=== PATIENT | female | born 1945 | race African-American/Black ===

== ENCOUNTER 2019-03-19 13:40 | Emergency (ER) | payer MEDICARE, OTHER ==
[~2019-03-19] VITALS: Ht 160 cm; Wt 50.0 kg
[~2019-03-19 13:40] MED LIST: ACET-2178 PO; ALBUTEROL; ASPI-518 PO; FLUT50DI; LOSA25TA3 PO; MOBI7 PO; MULT-783; OMEP20CA4 PO; POTA10CA42 PO; UBID10CA9 PO; [UNRECOGNIZED DRUG - CODE] PO
[2019-03-19 14:58] LABS: BASOPHILS % 0.8 % (0.0-2.0); EOSINOPHILS % 0.8 % (0.0-5.0); HEMATOCRIT. 38.9 % (36.0-48.0); HEMOGLOBIN. 12.9 g/dL (12.0-16.0); LYMPHOCYTES % 30.9 % (20.0-50.0); MEAN CORPUSCULAR VOLUME 87.5 fL (81.0-99.0); MEAN PLATELET VOLUME 7.6 fl (7.4-10.4); MONOCYTES % 6.4 % (2.0-8.0); NEUTROPHILS % 61.1 % (40.0-76.0); PLATELET 296 x1000/uL (130-400); RED BLOOD CELL COUNT 4.45 mill/uL (4.2-5.4); RED CELL DISTRIBUTION WIDTH 13.4 % (11.6-14.6)
[2019-03-19 15:04] LABS: CHLORIDE 106 mEq/L (98-107)
[2019-03-19 16:45] VITALS: BP 143/70
== END 2019-03-19 16:47 | disposition home or self-care (01) ==
LOC: ER 13:40
DX: R00.2 Palpitations (principal); I48.91 Unspecified atrial fibrillation; I10 Essential (primary) hypertension; J44.9 Chronic obstructive pulmonary disease, unspecified; E78.00 Pure hypercholesterolemia, unspecified; Z79.82 Long term (current) use of aspirin
CPT/HCPCS: 36415; 84484; 93005; 99284

== ENCOUNTER 2024-09-11 20:43 | Emergency (ER) | payer OTHER ==
[~2024-09-11] VITALS: Ht 165.1 cm; Wt 65.0 kg
[~2024-09-11 20:43] MED LIST changes: -ACET-2178 PO; +LOSA-412 PO; -LOSA25TA3 PO; -POTA10CA42 PO; +POTA10CA93 PO; +TOPUD PO
[2024-09-11 20:48] VITALS: TEMP 98.2; O2SAT 98
[2024-09-11 21:27] LABS: BASOPHILS % 0.7 % (0.0-2.0); EOSINOPHILS % 1.7 % (0.0-5.0); HEMATOCRIT. 38.2 % (36.0-48.0); HEMOGLOBIN. 12.2 g/dL (12.0-16.0); LYMPHOCYTES % 33.5 % (20.0-50.0); MEAN CORPUSCULAR HGB CONC 31.9 g/dL (31.0-37.0); MEAN CORPUSCULAR VOLUME 87.7 fL (81.0-99.0); MEAN PLATELET VOLUME 8.5 fl (7.4-10.4); MONOCYTES % 8.9 % (2.0-8.0); NEUTROPHILS % 55.2 % (40.0-76.0); PLATELET 214 x1000/uL (130-400); RED BLOOD CELL COUNT 4.35 mill/uL (4.2-5.4); RED CELL DISTRIBUTION WIDTH 13.5 % (11.6-14.6); WHITE BLOOD COUNT 6.9 x1000/uL (4.5-11.0)
[2024-09-11 21:32] LABS: CARBON DIOXIDE 30 mEq/L (21-32); CHLORIDE 106 mEq/L (98-107); POTASSIUM 4.5 mEq/L (3.5-5.1); SODIUM 141 mEq/L (136-145)
[2024-09-11 21:33] LABS: CALCIUM 9.8 mg/dL (8.7-10.4)
[2024-09-11 21:36] LABS: PARTIAL THROMBOPLASTIN TIME 26.4 sec (23.4-31.0); PROTHROMBIN TIME 10.9 sec (9.6-11.0)
[2024-09-11 21:37] LABS: CREATININE 1.1 mg/dL (0.6-1.0); GLUCOSE 86 mg/dL (70-105)
[2024-09-11 21:38] LABS: UREA NITROGEN BLOOD 19 mg/dL (9-23)
[2024-09-11 21:39] LABS: TROPONIN I HIGH SENSITIVITY 4 ng/L (3.0-34)
[2024-09-11 21:40] LABS: PHOSPHORUS 2.7 mg/dL (2.5-4.9)
[2024-09-11] MEDS: SODIUM CHLORIDE 0.9% 500 ML IV ONE (22:43)
[2024-09-11 23:30] LABS: TROPONIN I HIGH SENSITIVITY 5 ng/L (3.0-34)
[2024-09-12 01:00] VITALS: BP 161/66; PULSE 48; RESP 19; O2SAT 100
== END 2024-09-12 02:10 | disposition short-term general hospital (02) ==
LOC: ER 20:43
DX: R00.1 Bradycardia, unspecified (principal); R07.9 Chest pain, unspecified; N17.9 Acute kidney failure, unspecified; I49.1 Atrial premature depolarization; I48.91 Unspecified atrial fibrillation; I10 Essential (primary) hypertension; E87.8 Other disorders of electrolyte and fluid balance, not elsewhere classified; Z79.51 Long term (current) use of inhaled steroids
CPT/HCPCS: 99291; 80048; 83880; 83735; 84100; 85025; 85610; 85730; 84484; 36415; 71045; 93005; J7040; 96360

== ENCOUNTER 2024-09-18 20:30 | Emergency (ER) | payer OTHER ==
[~2024-09-18] VITALS: Ht 170.2 cm; Wt 65.0 kg
[2024-09-18 20:51] VITALS: BP 189/89; PULSE 68; RESP 12; TEMP 98.4; O2SAT 97
== END 2024-09-18 22:50 | disposition home or self-care (01) ==
LOC: ER 20:30
DX: I10 Essential (primary) hypertension (principal); R51.9 Headache, unspecified; J44.9 Chronic obstructive pulmonary disease, unspecified; I48.91 Unspecified atrial fibrillation
CPT/HCPCS: 93005; 99283